=== PATIENT | female | born 1955 | race Caucasian/White ===

== ENCOUNTER 2017-09-17 07:05 | Outpatient (CLI) | payer OTHER | END 2017-09-17 07:11 | disposition home or self-care (01) | LOC: SONOGRAMA 07:05 | DX: E04.2 Nontoxic multinodular goiter (principal) ==

== ENCOUNTER 2022-01-31 06:21 | Day surgery (SDC) | payer OTHER ==
[~2022-01-31 06:21] MED LIST: CRESTOR20 MG PO; TIROSINT75 MCG PO
[2022-01-31] MEDS ORDERED: ULTRACET PO (14:22)
[2022-01-31] MEDS ORDERED: MACROBID 100 M100 MG PO (14:22)
== END 2022-01-31 17:35 | disposition home or self-care (01) ==
LOC: CIR.AMB 06:21
PROVIDERS: ATTEND Obstetrics & Gynecology Gynecology
DX: N81.6 Rectocele (principal); K46.9 Unspecified abdominal hernia without obstruction or gangrene; M19.90 Unspecified osteoarthritis, unspecified site; H93.11 Tinnitus, right ear; Z20.822 Contact with and (suspected) exposure to COVID-19